=== PATIENT | male | born 1985 | race Two or more races ===

== ENCOUNTER 2017-01-12 00:49 | Emergency (ER) | payer SELFPAY ==
[~2017-01-12] VITALS: Ht 172.7 cm; Wt 70.5 kg
[2017-01-12 00:55] VITALS: Ht 172.7 cm; Wt 70.5 kg
== END 2017-01-12 03:56 | disposition left against medical advice (07) ==
LOC: FTE 00:49
DX: Z53.21 Procedure and treatment not carried out due to patient leaving prior to being seen by health care provider (principal)